=== PATIENT | male | born 1945 | race Caucasian/White ===

== ENCOUNTER 2017-09-21 11:35 | Outpatient (CLI) | payer MEDICARE | END 2017-09-21 11:36 | disposition home or self-care (01) | LOC: BICRAD 11:35 | PROVIDERS: ATTEND Specialist | DX: R05 Cough (principal) | CPT/HCPCS: 71046 ==

== ENCOUNTER 2020-12-27 10:10 | Outpatient (CLI) | payer MEDICARE, OTHER | END 2020-12-27 10:11 | disposition home or self-care (01) | LOC: NM 10:10 | PROVIDERS: ATTEND Internal Medicine | DX: R07.81 Pleurodynia (principal); R07.89 Other chest pain | CPT/HCPCS: 78306; A9503 ==